=== PATIENT | male | born 1940 | race Caucasian/White ===

== ENCOUNTER 2023-07-11 01:52 | Inpatient (IN) | payer MEDICARE, SELFPAY ==
[2023-07-11] VITALS (19 sets, daily range): BP systolic 102–162; BP diastolic 59–87; PULSE 90–125; RESP 13–22; TEMP 36.7–39.1; O2SAT 92–97; BMI 26.6
--- NOTE | ~2023-07-11 | XR_ITS ---
EXAMINATION: XR ABDOMEN KUB CLINICAL INDICATION: Vomiting COMPARISON: None available. TECHNIQUE: AP view of the abdomen. FINDINGS: The bowel gas pattern is normal with no evidence of ileus or obstruction. Permanent calcifications projecting over the bilateral renal shadows may represent nonobstructive calculi.. The bones are unremarkable. XR/XR KUB IMPRESSION: * No evidence of bowel obstruction. * Query bilateral nonobstructive renal calculi.
--- NOTE | ~2023-07-11 | XR_ITS ---
EXAMINATION: XR CHEST CLINICAL INFORMATION: Cough COMPARISON: None available. TECHNIQUE: Frontal view of the chest was obtained. FINDINGS: Low lung volumes. No focal consolidation. No pleural effusion. No pneumothorax. Cardiomediastinal silhouette and pulmonary vascularity are within normal limits. No acute osseous abnormalities. XR/XR chest 1V IMPRESSION: No acute findings.
--- NOTE | 2023-07-11 02:25 | PC.NURSE ---
This RN assumed care upon patient arrival. Patient noted to have fever, met SIRS criteria, sepsis protocol initiated at 0215. Dr. Flores aware, plan of care ongoing
[2023-07-11 02:30] LABS: Basophils Absolute Auto 0.1 X10*3/uL (0.0-0.2); Basophils Percent Auto 0.3 % (0-2); Eosinophils Percent Auto 0.1 % (0-4); Hematocrit 42.9 % (42.0-52.0); Hemoglobin 14.8 g/dl (14.0-18.0); Imm Gran Abs Auto 0.09 X10*3/uL (0.00-0.03); Imm Gran Pct Auto 0.5 % (0.0-0.4); Lymphocytes Absolute Auto 0.6 X10*3/uL (1.2-4.9); Lymphocytes Percent Auto 3.2 % (20-40); MANUAL DIFF FLAG SCAN; Mean Corpuscular HGB Conc 34.5 g/dl (31.0-36.0); Mean Corpuscular Hemoglobin 29.5 pg (27.0-33.0); Mean Corpuscular Volume 85.6 fL (80.0-98.0); Mean Platelet Volume 9.8 fL (9.4-12.4); Monocytes Absolute Auto 0.3 X10*3/uL (0.1-1.2); Monocytes Percent Auto 1.5 % (2-11); Neutrophils Percent Auto 94.4 % (45-73); Platelet Count 178 X10*3/uL (160-400); Red Blood Count 5.01 X10*6/uL (4.60-5.80); Red Cell Distribution Width 13.7 % (11.0-16.0); SCAN SMEAR FLAG 1
[2023-07-11] MEDS: Acetaminophen Supp 650 MG SUPP.RECT PR (02:32)
[2023-07-11 02:43] LABS: Alanine Aminotransferase 11 U/L (0-40); Albumin Level 4.2 g/dL (3.5-5.0); Alkaline Phosphatase 111 U/L (39-117); Anion Gap 21 (12-20); Aspartate Amino Transferase 13 U/L (5-37); Bilirubin Total 0.9 mg/dL (0.0-1.0); Blood Urea Nitrogen 30 mg/dL (9-16); Calcium 10.1 mg/dL (8.4-10.2); Carbon Dioxide 14 mmol/L (22-29); Chloride 113 mmol/L (96-108); Creatinine Clr Calc Pharmacy 40.6; Estimated Glomerular Filt Rate 42; Glucose Random 165 mg/dL (60-115); Partial Thromboplastin Time 26.5 SEC (26.0-36.4); Potassium 3.3 mmol/L (3.3-5.1); Sodium 145 mmol/L (135-145); Total Protein 7.8 g/dL (6.5-8.0)
[2023-07-11 02:44] LABS: Lactic Acid 5.2 mmol/L (0.5-2.0)
--- NOTE | 2023-07-11 02:45 | ECG_ITS ---
Test Reason : MATFESR Blood Pressure : / mmHG Vent. Rate : 109 BPM Atrial Rate : 109 BPM P-R Int : 192 ms QRS Dur : 090 ms QT Int : 338 ms P-R-T Axes : 025 -66 057 degrees QTc Int : 455 ms Sinus tachycardia Nonspecific ST and T wave abnormality Anterior leads Left anterior fascicular block Inferior infarct , age undetermined Abnormal ECG No previous ECGs available Referred By: Jaymie Flores Electronically Signed By:LINCOLN LARIOS MD
--- NOTE | 2023-07-11 02:45 | PC.NURSE ---
Patient medicated with rectal Tylenol per NOV.
[2023-07-11 02:46] LABS: SLIDE REVIEW VERIFIED
[2023-07-11 02:48] LABS: Troponin-I High Sensitivity 2.7 ng/L (<3.5-35.0)
[2023-07-11 02:54] LABS: COVID-19 Test Negative (Negative); IDNOW Serial# BCCEAD1C
[2023-07-11] MEDS: 0.9 % Sodium Chloride 2,670 ML 2670 ML IV (03:08)
--- NOTE | 2023-07-11 03:11 | ED_ITS ---
HPI - Nausea/Vomiting/Diarrhea General Chief complaint: Nausea/Vomiting/Diarrhea Stated complaint: vomiting Time Seen by Provider: 07/11/23 02:23 Source: EMS and other Mode of arrival: EMS History of Present Illness HPI Narrative: 82-year-old male is brought in from [facility] via EMS for vomiting x4 of dark brown emesis as per the facility, patient is very confused at baseline per EMS and has a history of dementia. Related Data Allergies Allergy/AdvReac Type Severity Reaction Status Date / Time Unable to Assess Allergy Verified 07/11/23 02:23 Review of Systems 2 Review of Systems: Yes Unobtainable due to mental condition PMFSH Past Medical History Source: nursing notes reviewed Social History Social History Advance Directives: No Advance Directives Information Provided: No Physical Exam 2 Vital Signs: Vital Signs: Last Vital Signs Temp 100.9 F H 07/11/23 03:52 Pulse 94 07/11/23 04:24 Resp 21 H 07/11/23 04:24 BP 150/76 H 07/11/23 04:24 Pulse Ox 96 07/11/23 04:24 O2 Del Method Room Air 07/11/23 04:24 BMI result Body Mass Index 26.6 VITAL SIGNS: Reviewed. GENERAL: Well developed, well nourished, in moderately agitated. HEAD: Normocephalic/atraumatic, EYES: PERRLA, EOMI EARS: Ext canals without abnormality, TMs non-bulging and non-erythematous NOSE: Nares patent bilateral OROPHARYNX: no oral lesions noted, posterior pharynx clear, dry mucosa NECK: Supple, no adenopathy LUNGS: Normal breath sounds. No adventitious sounds or accessory muscle use. SpO2<> CARDIOVASCULAR: Regular rate and rhythm without noted murmurs, no JVD or lower extremity edema. ABDOMEN: Soft, +tender, non-distended with hypoactive bowel sounds. MUSCULOSKELETAL: No tenderness, deformities, or effusions noted on gross inspection. EXTREMITIES: No cyanosis, clubbing or edema. SKIN: Inspection of the skin reveals no rashes NEUROLOGIC: Alert and oriented x 1. Strength and sensation to light touch were grossly intact x 4. Medications Administered Discontinued Medications Generic Name Dose Route Start Last Admin Trade Name Freq PRN Reason Stop Dose Admin Acetaminophen 650 mg 07/11/23 02:24 07/11/23 02:32 Acetaminophen Supp 650 Mg Supp.Rect SC 07/11/23 02:25 650 mg ONCE ONE Administration Sodium Chloride 2,670 mls @ 2,670 mls/hr 07/11/23 02:44 07/11/23 03:08 Ns 30 ml/kg infuse over 1 hr (2670 ml) 07/11/23 03:43 2,670 mls/hr IV Administration .Q1H STA Piperacillin Sod/Tazobactam 50 mls @ 100 mls/hr 07/11/23 03:03 07/11/23 03:13 Sod 3.375 gm/ Sodium Chloride IV 07/11/23 03:32 100 mls/hr ONCE ONE Administration Medical Decision Making Medical Decision Making [facility] Narrative: 0224: 82-year-old male with history and clinical presentation, DDX: Sepsis, GI bleed, SBO, UTI, diverticulitis, pneumonia - labs, lactic acid, blood cultures, urinalysis, chest x-ray, EKG I was called and informed that patient's lactic acid was greater than 4 and ordered sepsis fluids for this patient at 30ml/kg. 0303: Confirm patient has no allergies to antibiotics and ordered Zosyn. 0324: I reviewed all investigations and hematologic indices are significant for leukocytosis and left shift without anemia or thrombocytopenia. Chemistry indices significant for RICK and metabolic acidosis that is being attributed to patient's lactic acidosis, otherwise no liver enzyme abnormalities. Urinalysis significant for UTI. KUB negative for evidence of obstructive pattern and chest x-ray negative for infiltrate. I re-evaluated the patient. 0440: I discussed case with inpatient hospitalist who accepts admission. Differential Diagnosis Differential Diagnoses: The differential diagnosis associated with the presentation includes Please see the discussion above Admission/Observation Consideration of admission/observation: Escalation of care including admission/observation considered Please see the discussion above Consult Healthcare Provider Management of the patient was discussed with: Hospitalist Please see the discussion above Lab Data MDM Lab Attestation statement: I reviewed the patient's lab results. Please see the discussion above 07/11/23 02:21 07/11/23 02:21 Labs: Lab Results 07/11/23 07/11/23 07/11/23 Range/Units 02:21 02:27 04:10 WBC 19.0 H (4.8-10.8) X10*3/uL RBC 5.01 (4.60-5.80) X10*6/uL Hgb 14.8 (14.0-18.0) g/dl Hct 42.9 (42.0-52.0) % MCV 85.6 (80.0-98.0) fL MCH 29.5 (27.0-33.0) pg MCHC 34.5 (31.0-36.0) g/dl RDW 13.7 (11.0-16.0) % Plt Count 178 (160-400) X10*3/uL MPV 9.8 (9.4-12.4) fL Immature Gran % (Auto) 0.5 H (0.0-0.4) % Neut % (Auto) 94.4 H (45-73) % Lymph % (Auto) 3.2 L (20-40) % [place] % (Auto) 1.5 L (2-11) % Eos % (Auto) 0.1 (0-4) % Baso % (Auto) 0.3 (0-2) % Lymph # (Auto) 0.6 L (1.2-4.9) X10*3/uL [place] # (Auto) 0.3 (0.1-1.2) X10*3/uL Eos # (Auto) 0.0 (0.0-0.4) X10*3/uL Baso # (Auto) 0.1 (0.0-0.2) X10*3/uL Abs Immat Gran (auto) 0.09 H (0.00-0.03) X10*3/uL Absolute Neuts (auto) 18.0 H (2.0-8.3) x10*3/uL Absolute Nucleated RBC 0.000 (0.0-0.012) X10*3/uL Nucleated RBC % (auto) 0.0 (0.0-0.2) /100WBC Smear Tech's Comments VERIFIED APTT 26.5 (26.0-36.4) SEC Sodium 145 (135-145) mmol/L Potassium 3.3 (3.3-5.1) mmol/L Chloride 113 H (96-108) mmol/L Carbon Dioxide 14 L (22-29) mmol/L Anion Gap 21 H (12-20) BUN 30 H (9-16) mg/dL Creatinine 1.59 H (0.5-1.4) mg/dL Estim Creat Clear Calc 40.6 Estimated GFR 42 Random Glucose 165 H (60-115) mg/dL Lactic Acid 5.2 H* (0.5-2.0) mmol/L Calcium 10.1 (8.4-10.2) mg/dL Total Bilirubin 0.9 (0.0-1.0) mg/dL AST 13 (5-37) U/L ALT 11 (0-40) U/L Alkaline Phosphatase 111 (39-117) U/L Troponin I High Sens 2.7 (<3.5-35.0) ng/L Total Protein 7.8 (6.5-8.0) g/dL Albumin 4.2 (3.5-5.0) g/dL Urine Color Straw Urine Appearance Turbid Urine pH 8.5 (5.0-9.0) Ur Specific [place] 1.015 (1.005-1.025) Urine Protein 100 (2+) H (Neg-Trace) mg/dL Urine Glucose (UA) Negative (Negative) mg/dL Urine Ketones Negative (Negative) mg/dL Urine Blood Large (3+) H (Negative) Urine Nitrite Positive H (Negative) Ur Leukocyte Esterase Large (3+) H (Negative) COVID-19 (EVI) Negative (Negative) COVID-19 Clin Com See Note Independent Interpretation I performed an independent interpretation of an: EKG Interpretation: Sinus tachycardia, HR-109, SC/QRS/QTC is within normal limits. Radiology Impression Discussion of test interpretation with radiology: I have reviewed the radiologist's reading. Radiologist Impression: Please see the discussion above Chronic Conditions Patient?s care impacted by: Hypertension Critical Care Time Critical Care Time Critical Care Time: Yes Total Critical Care Time: 60 Attestation: I personally attest to this time spent taking care of the patient. Discharge Plan Discharge Clinical Impression: Severe sepsis, Acute UTI, RICK (acute kidney injury), Metabolic acidosis Patient Disposition: Admitted As Inpatient
[2023-07-11] MEDS: Piperacillin Sodium/Tazobactam 3.375 GM in 0.9 % Sodium Chloride 50 ML IV (03:13)
--- NOTE | 2023-07-11 04:08 | PC.NURSE ---
Addendum entered by Terri Velez RN 07/11/23 04:09: Late entry- this was done at 0257 Original Note: Adolfo LONG from [facility] confirmed patient has NO KNOWN ALLERGIES
[2023-07-11 04:26] LABS: Reflex Lactate? Lactic Acid Added
[2023-07-11 04:30] LABS: Appearance Urine Turbid; Glucose Urine UA Negative (Negative); Leukocyte Esterase Urine Large (3+) (Negative); Nitrite Urine Positive (Negative); PH 8.5 (5.0-9.0); Specific Gravity - Urine 1.015 (1.005-1.025); UMIC TRIGGER UACC YES; Urine Blood Large (3+) (Negative); Urine Ketones Negative (Negative); Urine Protein 100 (2+) mg/dL (Neg-Trace)
[2023-07-11 04:31] LABS: Color Urine Straw
--- NOTE | 2023-07-11 04:43 | P.HPHOSP_ITS ---
History of Present Illness Date of Service: 07/11/23 Chief Complaint: Altered mentation This is a 82-year-old male with pertinent history of unspecified dementia, mood disorder, mixed hyperlipidemia who was sent to the emergency department for evaluation of altered mentation. Patient is a resident of [facility] and he was sent as he is confused. Also has been having multiple episodes of nonbloody emesis. Patient is a poor historian and unable to obtain history from the patient. History obtained from ER provider and chart review. Unable to obtain review of systems. In the emergency department, patient was found to be septic and urine concerning for UTI. Review of Systems 2 Review of Systems: Yes Unobtainable due to mental condition and Unobtainable due to mental status PMFSH Medical History (Updated 07/11/23 @ 05:31 by Crow Murrieta MD) Dementia Mood disorder Mixed hyperlipidemia Pertinent family history: Unable to obtain Social History Advance Directives: No Advance Directives Information Provided: No Meds Allergies Allergy/AdvReac Type Severity Reaction Status Date / Time Unable to Assess Allergy Verified 07/11/23 02:23 Physical Exam 2 Vital Signs and Narrative: Vital Signs: Last Vital Signs Temp 100.9 F H 07/11/23 03:52 Pulse 94 07/11/23 04:39 Resp 19 07/11/23 04:39 BP 149/83 H 07/11/23 04:39 Pulse Ox 95 07/11/23 04:39 O2 Del Method Room Air 07/11/23 04:39 BMI result Body Mass Index 26.6 Elderly male lying in bed in no distress Neck supple, no JVD Regular rate and rhythm, S1-S2 heard Regular breath sounds bilaterally, no wheezing or crackles appreciated Abdomen soft nontender, no guarding, no rigidity Patient is awake, alert but not answering questions, occasional mumbling, not conversational, unable to assess orientation Psych: Lethargic No pedal edema Results Labs 07/11/23 02:21 07/11/23 02:21 Labs: Laboratory Results - last 24 hr 07/11/23 07/11/23 07/11/23 02:21 02:27 04:10 MCV 85.6 MCH 29.5 MCHC 34.5 RDW 13.7 Plt Count 178 MPV 9.8 Immature Gran % (Auto) 0.5 H Neut % (Auto) 94.4 H Lymph % (Auto) 3.2 L [place] % (Auto) 1.5 L Eos % (Auto) 0.1 Baso % (Auto) 0.3 Lymph # (Auto) 0.6 L [place] # (Auto) 0.3 Eos # (Auto) 0.0 Baso # (Auto) 0.1 Abs Immat Gran (auto) 0.09 H Absolute Neuts (auto) 18.0 H Absolute Nucleated RBC 0.000 Nucleated RBC % (auto) 0.0 Smear Tech's Comments VERIFIED APTT 26.5 Anion Gap 21 H Estim Creat Clear Calc 40.6 Estimated GFR 42 Random Glucose 165 H Lactic Acid 5.2 H* Calcium 10.1 Total Bilirubin 0.9 AST 13 ALT 11 Alkaline Phosphatase 111 Total Protein 7.8 Albumin 4.2 Urine Color Straw Urine Appearance Turbid Urine pH 8.5 Ur Specific [place] 1.015 Urine Protein 100 (2+) H Urine Glucose (UA) Negative Urine Ketones Negative Urine Blood Large (3+) H Urine Nitrite Positive H Ur Leukocyte Esterase Large (3+) H COVID-19 (EVI) Negative COVID-19 Clin Com See Note Imaging Radiologist's Impressions: Impressions Chest X-Ray 07/11/23 02:47 IMPRESSION: No acute findings. KUB X-Ray 07/11/23 02:47 IMPRESSION: * No evidence of bowel obstruction. * Query bilateral nonobstructive renal calculi. Assessment and Plan (1) Severe sepsis: Status: Acute (2) Acute UTI: Status: Acute Plan This is a 82-year-old male with pertinent history of unspecified dementia, mood disorder, mixed hyperlipidemia who was sent to the emergency department for evaluation of altered mentation. #. Sepsis due to UTI. Resuscitated with IV crystalloids. Initiating empiric IV antibiotics. Lactic acid and blood culture obtained #. Acute encephalopathy in the setting of above. Will keep NPO until mentation improves #. Acute lactic acidosis due to sepsis. Trending down with crystalloid resuscitation #. Elevated creatinine. Unknown baseline. RICK versus CKD. Monitor with crystalloid resuscitation #. Dementia, unspecified without behavioral disturbances. Maintain sleep-wake cycle. #. Mood disorder. Continue home mood stabilizers once no longer NPO Med rec pending DVT prophylaxis: Lovenox DNR/DNI. MOLST form present on admission Admit as inpatient and will require two night minimum hospital stay for IV antibiotics Time Spent With Patient Time: Total time managing care of this patient today ____ minutes. Quality Stroke Does the patient have a stroke diagnosis?: No VTE Prior VTE?: No VTE Risk Level:: Medical - moderate - high VTE Device Contraindication: Treatment Not Indicated VTE Drug Contraindication: N/A - Med Ordered
[2023-07-11 04:45] LABS: Bacteria Urine 4+ (None Seen); RBC Urine >20 /HPF (0-2); Squamous Epithelial Cell Urine 0-2 /HPF (0-2); UACC Culture Trigger YES; WBC Urine >50 /HPF (0-5)
[2023-07-11 06:06] LABS: Alanine Aminotransferase 9 U/L (0-40); Albumin Level 3.3 g/dL (3.5-5.0); Alkaline Phosphatase 81 U/L (39-117); Anion Gap 15 (12-20); Aspartate Amino Transferase 13 U/L (5-37); Bilirubin Total 0.8 mg/dL (0.0-1.0); Blood Urea Nitrogen 28 mg/dL (9-16); Calcium 8.4 mg/dL (8.4-10.2); Carbon Dioxide 12 mmol/L (22-29); Chloride 121 mmol/L (96-108); Creatinine Clr Calc Pharmacy 43.1; Estimated Glomerular Filt Rate 45; Glucose Random 136 mg/dL (60-115); Potassium 3.3 mmol/L (3.3-5.1); Sodium 145 mmol/L (135-145); Total Protein 6.3 g/dL (6.5-8.0)
[2023-07-11 06:44] LABS: Reflex Lactate? 2 Y
[2023-07-11] MEDS: cefTRIAXone sodium 1 GM in 0.9 % Sodium Chloride 50 ML IV (07:38)
[2023-07-11] MEDS: Enoxaparin Sodium 40 MG/0.4 ML SYRINGE SUBCUT (07:41)
[2023-07-11] MEDS: 0.9 % Sodium Chloride Flush 3 ML SYRINGE IVFLUSH ×2 (07:48→20:22)
[2023-07-11 08:00] LABS: ~Lactic Acid-LAB USE ONLY 4.7 mmol/L (0.5-2.0)
--- NOTE | 2023-07-11 08:23 | PC.NURSE ---
lactic 4.7, reported to provider
--- NOTE | 2023-07-11 09:01 | PHA.MEDREC ---
Pharmacy Consult ? Medication Reconciliation Pharmacy has completed the medication reconciliation. MED REC COMPLETE USING LIST FROM DAMIEN COHEN DATED 07/11/23
--- NOTE | 2023-07-11 10:38 | MHC.CM.PN ---
Pt w/dementia and not able to particpate in CM assessment. Call placed to pt's son Hilario at [phone]: he states pt resides at [facility] and has his HCP activated. IMM explained to Hilario: copy left w/pt. Call placed to MERCEDES Crowell at [facility]. She states pt is totally dependent on others for ADL's, requires a ground soft diet and physical assist and cannot make his needs known. He is a LTC resident and will return via BLS. She will fax his MOLST and HCP to ED. CM to follow for d/c finalization
--- NOTE | 2023-07-11 11:11 | P.PNIM_ITS ---
Subjective Subjective Date of Service: 07/11/23 Review of Systems Review of Systems: Yes Unobtainable due to mental condition Physical Exam 2 Vital Signs: Vital Signs: Last Vital Signs Temp 100.1 F 07/11/23 06:00 Pulse 104 H 07/11/23 08:23 Resp 18 07/11/23 08:23 BP 150/78 H 07/11/23 08:23 Pulse Ox 97 07/11/23 08:23 O2 Del Method Room Air 07/11/23 08:23 BMI result Body Mass Index 26.6 lethargic, frail, ill appearing, confused Objective Data Active Medications Acetaminophen (Acetaminophen 325 Mg Tablet) 650 mg PO Q6H PRN PRN Reason: Pain, Mild (Pain Scale 1-3) Acetaminophen (Acetaminophen Supp 650 Mg Supp.Rect) 650 mg [place] Q6H PRN PRN Reason: Pain, Mild (Pain Scale 1-3) Aspirin (Aspirin 81 Mg Tab.Chew) 81 mg PO DAILY [facility] Enoxaparin Sodium (Enoxaparin Sodium 40 Mg/0.4 Ml Syringe) 40 mg SUBCUT Q24H [facility] Last Admin: 07/11/23 07:41 Dose: 40 mg Documented By: MIRIAM Ceftriaxone Sodium 1 gm/ (Sodium Chloride) 50 mls @ 100 mls/hr IV Q24H [facility] Last Infusion: 07/11/23 08:46 Dose: Infused Documented By: MIRIAM Melatonin (Melatonin 3 Mg Tablet) 6 mg PO BEDTIME PRN PRN Reason: Insomnia Mirtazapine (Mirtazapine 15 Mg Tablet) 15 mg PO BEDTIME [facility] Ondansetron HCl (Ondansetron Hcl 4 Mg/2 Ml Vial) 4 mg IVPUSH Q8H PRN PRN Reason: Nausea and Vomiting Polyethylene Glycol (Polyethylene Glycol 3350 17 Gm Powd.Pack) 17 gm PO Q OTHER DAY [facility] Sertraline HCl (Sertraline Hcl 25 Mg Tablet) 75 mg PO DAILY [facility] Simethicone (Simethicone 80 Mg Tab.Chew) 80 mg PO Q8H PRN PRN Reason: Gas Sodium Chloride (0.9 % Sodium Chloride Flush 3 Ml Syringe) 3 ml IVFLUSH QSHIFT [facility] Last Admin: 07/11/23 07:48 Dose: 3 ml Documented By: MIRIAM Vitamin D (Cholecalciferol (Vitamin D3) 25 Mcg Tablet) 25 mcg PO DAILY [facility] Labs 07/11/23 02:21 07/11/23 04:51 Labs: Laboratory Results - last 24 hr 07/11/23 07/11/23 07/11/23 02:21 02:27 04:10 MCV 85.6 MCH 29.5 MCHC 34.5 RDW 13.7 Plt Count 178 MPV 9.8 Immature Gran % (Auto) 0.5 H Neut % (Auto) 94.4 H Lymph % (Auto) 3.2 L [place] % (Auto) 1.5 L Eos % (Auto) 0.1 Baso % (Auto) 0.3 Lymph # (Auto) 0.6 L [place] # (Auto) 0.3 Eos # (Auto) 0.0 Baso # (Auto) 0.1 Abs Immat Gran (auto) 0.09 H Absolute Neuts (auto) 18.0 H Absolute Nucleated RBC 0.000 Nucleated RBC % (auto) 0.0 Smear Tech's Comments VERIFIED APTT 26.5 Anion Gap 21 H Estim Creat Clear Calc 40.6 Estimated GFR 42 Random Glucose 165 H Lactic Acid 5.2 H* Lactic Acid F/U @ 2Hr Lactic Acid F/U @ 4Hr Calcium 10.1 Total Bilirubin 0.9 AST 13 ALT 11 Alkaline Phosphatase 111 Total Protein 7.8 Albumin 4.2 Urine Color Straw Urine Appearance Turbid Urine pH 8.5 Ur Specific [place] 1.015 Urine Protein 100 (2+) H Urine Glucose (UA) Negative Urine Ketones Negative Urine Blood Large (3+) H Urine Nitrite Positive H Ur Leukocyte Esterase Large (3+) H Urine RBC >20 H Urine WBC >50 H Ur Squamous Epith Cells 0-2 Urine Bacteria 4+ Hyaline Casts 3-5 COVID-19 (EVI) Negative COVID-19 Clin Com See Note 07/11/23 07/11/23 07/11/23 04:39 04:51 07:38 MCV MCH MCHC RDW Plt Count MPV Immature Gran % (Auto) Neut % (Auto) Lymph % (Auto) [place] % (Auto) Eos % (Auto) Baso % (Auto) Lymph # (Auto) [place] # (Auto) Eos # (Auto) Baso # (Auto) Abs Immat Gran (auto) Absolute Neuts (auto) Absolute Nucleated RBC Nucleated RBC % (auto) Smear Tech's Comments APTT Anion Gap 15 Estim Creat Clear Calc 43.1 Estimated GFR 45 Random Glucose 136 H Lactic Acid Lactic Acid F/U @ 2Hr 3.0 H* Lactic Acid F/U @ 4Hr 4.7 H* Calcium 8.4 D Total Bilirubin 0.8 AST 13 ALT 9 Alkaline Phosphatase 81 Total Protein 6.3 L Albumin 3.3 L Urine Color Urine Appearance Urine pH Ur Specific [place] Urine Protein Urine Glucose (UA) Urine Ketones Urine Blood Urine Nitrite Ur Leukocyte Esterase Urine RBC Urine WBC Ur Squamous Epith Cells Urine Bacteria Hyaline Casts COVID-19 (EVI) COVID-19 Clin Com Assessment and Plan (1) Dementia: Status: Acute Plan 82M PMH unspecified dementia, mood disorder, hyperlipidemia presented with altered mental status Severe sepsis and acute metabolic encephalopathy due to urinary tract infection Continue ceftriaxone, follow-up cultures Unspecified dementia At risk for further delirium, monitor closely DVT prophylaxis with Lovenox DNR/DNI Reason for continued hospitalization: Continue antibiotics while awaiting cultures and defervescence Time Spent With Patient Time: Total time managing care of this patient today ____ minutes. Quality Stroke Does the patient have a stroke diagnosis?: No VTE Prior VTE?: No VTE Risk Level:: Medical - moderate - high VTE Device Contraindication: Treatment Not Indicated VTE Drug Contraindication: N/A - Med Ordered
[2023-07-11] MEDS: polyethylene glycoL 3350 17 GM POWD.PACK PO (13:02)
--- NOTE | 2023-07-11 13:02 | PC.NURSE ---
Report given to accepting unit
[2023-07-12 03:52] VITALS: BP 126/65; PULSE 74; RESP 14; TEMP 36; O2SAT 96
--- NOTE | 2023-07-12 05:34 | PC.NURSE ---
pt is bedbound at the SNF not moving out of bed therefore low fall risk at this time. pt is total care w/chronic f/c. provided q2 reposition during the night. provided mouth care. pt is more alert at this morning. when I called his name, pt response and make some sounds. will CONT to monitor.
[2023-07-12] MEDS: cefTRIAXone sodium 1 GM in 0.9 % Sodium Chloride 50 ML IV (05:53)
[2023-07-12 06:28] LABS: Anion Gap 15 (12-20); Blood Urea Nitrogen 42 mg/dL (9-16); Calcium 8.9 mg/dL (8.4-10.2); Carbon Dioxide 17 mmol/L (22-29); Chloride 122 mmol/L (96-108); Creatinine Clr Calc Pharmacy 41.7; Estimated Glomerular Filt Rate 43; Glucose Fasting 112 mg/dL (60-99); Potassium 3.5 mmol/L (3.3-5.1); Sodium 150 mmol/L (135-145)
[2023-07-12 06:35] LABS: Hematocrit 34.3 % (42.0-52.0); Mean Corpuscular Hemoglobin 30.3 pg (27.0-33.0); Mean Corpuscular Volume 86.6 fL (80.0-98.0); Mean Platelet Volume 10.9 fL (9.4-12.4); Platelet Count 116 X10*3/uL (160-400); Red Blood Count 3.96 X10*6/uL (4.60-5.80); Red Cell Distribution Width 14.1 % (11.0-16.0)
[2023-07-12 06:55] VITALS: BP 131/78; PULSE 81; RESP 16; TEMP 36.7; O2SAT 94
[2023-07-12] MEDS: vancomycin/NS 2,000 MG/500 ML PLAST..BAG 250 MG IV (07:51)
--- NOTE | 2023-07-12 08:17 | PHA.PROG ---
Admission Date/Time: July 11, 2023 04:42 Indication: Bacteremia Weight in k kg Adjusted body weight in K.16 [place] body weight in K.6 Obesity Dosing Indication % IBW: not obese Serum Creatinine - Last 168 Hours 07/11/23 07/11/23 07/12/23 02:21 04:51 05:21 Creatinine 1.59 H 1.50 H 1.55 H Estimated CrCl and GFR - Last 168 Hours 07/11/23 07/11/23 07/12/23 02:21 04:51 05:21 Estim Creat Clear Calc 40.6 43.1 41.7 Estimated GFR 42 45 43 Vancomycin Loading Dose: 2000 mg Current Vancomycin Dosing Regimen: 1250 mg Q24H Vancomycin Monitoring using AUC goal of 400 - 600 range with trough as surrogate marker: 574 Date and Time for next Vancomycin Level to be drawn: 07/14 @0600 Pharmacist Comments on Vancomycin Plan: Vancomycin dosing will take advantage of [employer] as a clinical decision support tool that uses Bayesian modeling to calculate individual patient's pharmacokinetic parameters and forecast the patient's drug concentration time course with the target goal AUC 24 range of 400 - 600 mg/L/hr.
[2023-07-12] MEDS: Enoxaparin Sodium 40 MG/0.4 ML SYRINGE SUBCUT (09:30)
--- NOTE | 2023-07-12 09:52 | P.PNIM_ITS ---
Subjective Subjective Date of Service: 07/12/23 Interval History: a bit stronger today Physical Exam 2 Vital Signs: Vital Signs: Last Vital Signs Temp 98.1 F 07/12/23 06:55 Pulse 81 07/12/23 06:55 Resp 16 07/12/23 06:55 BP 131/78 07/12/23 06:55 Pulse Ox 94 07/12/23 06:55 O2 Del Method Room Air 07/12/23 06:55 BMI result Body Mass Index 26.6 less lethargic, frail, ill appearing, confused Objective Data Active Medications Acetaminophen (Acetaminophen 325 Mg Tablet) 650 mg PO Q6H PRN PRN Reason: Pain, Mild (Pain Scale 1-3) Acetaminophen (Acetaminophen Supp 650 Mg Supp.Rect) 650 mg [place] Q6H PRN PRN Reason: Pain, Mild (Pain Scale 1-3) Aspirin (Aspirin 81 Mg Tab.Chew) 81 mg PO DAILY [facility] Last Admin: 07/12/23 09:23 Dose: Not Given Documented By: MAGNOLIA Non-Admin Reason: NPO Enoxaparin Sodium (Enoxaparin Sodium 40 Mg/0.4 Ml Syringe) 40 mg SUBCUT Q24H [facility] Last Admin: 07/12/23 09:30 Dose: 40 mg Documented By: MAGNOLIA Ceftriaxone Sodium 1 gm/ (Sodium Chloride) 50 mls @ 100 mls/hr IV Q24H [facility] Last Infusion: 07/12/23 06:23 Dose: Infused Documented By: KAITLIN Vancomycin HCl 1,250 mg/ (Sodium Chloride) 250 mls @ 166.667 mls/hr IV Q24H JOSE E Melatonin (Melatonin 3 Mg Tablet) 6 mg PO BEDTIME PRN PRN Reason: Insomnia Mirtazapine (Mirtazapine 15 Mg Tablet) 15 mg PO BEDTIME [facility] Last Admin: 07/11/23 20:24 Dose: Not Given Documented By: KAITLIN Non-Admin Reason: NPO Ondansetron HCl (Ondansetron Hcl 4 Mg/2 Ml Vial) 4 mg IVPUSH Q8H PRN PRN Reason: Nausea and Vomiting Pharmacy Consult (Consult Rx Vancomycin Dosing) 1 each MISCELLANE DAILY PRN PRN Reason: Consult order Polyethylene Glycol (Polyethylene Glycol 3350 17 Gm Powd.Pack) 17 gm PO Q48H [facility] Last Admin: 07/11/23 13:02 Dose: 17 gm Documented By: MIRIAM Sertraline HCl (Sertraline Hcl 25 Mg Tablet) 75 mg PO DAILY [facility] Last Admin: 07/12/23 09:23 Dose: Not Given Documented By: MAGNOLIA Non-Admin Reason: NPO Simethicone (Simethicone 80 Mg Tab.Chew) 80 mg PO Q8H PRN PRN Reason: Gas Sodium Chloride (0.9 % Sodium Chloride Flush 3 Ml Syringe) 3 ml IVFLUSH QSHIFT [facility] Last Admin: 07/12/23 08:04 Dose: Not Given Documented By: AMGNOLIA Non-Admin Reason: IV Running Vitamin D (Cholecalciferol (Vitamin D3) 25 Mcg Tablet) 25 mcg PO DAILY [facility] Last Admin: 07/12/23 09:23 Dose: Not Given Documented By: MAGNOLIA Non-Hayde Reason: NPO Labs 07/12/23 05:21 07/12/23 05:21 Labs: Laboratory Results - last 24 hr 07/12/23 05:21 MCV 86.6 MCH 30.3 MCHC 35.0 RDW 14.1 Plt Count 116 L D MPV 10.9 Absolute Nucleated RBC 0.000 Nucleated RBC % (auto) 0.0 Anion Gap 15 Estim Creat Clear Calc 41.7 Estimated GFR 43 Fasting Glucose 112 H Calcium 8.9 Microbiology Microbiology Results: Microbiology 07/11/23 02:33 Blood Culture - Preliminary Blood - Venous Gram negative lesley Prelim: GPC Gram Stain only 07/11/23 02:21 Blood Culture - Preliminary Blood - Venous Gram negative lesley Prelim: GPC Gram Stain only Assessment and Plan (1) Dementia: Status: Acute Plan 82M PMH unspecified dementia, mood disorder, hyperlipidemia presented with altered mental status Severe sepsis and acute metabolic encephalopathy due to urinary tract infection due to chronic rizzo complicated by polymicrobial bacteremia Continue ceftriaxone, asdded vanc for gpc in blood Unspecified dementia At risk for further delirium, monitor closely DVT prophylaxis with Lovenox DNR/DNI Reason for continued hospitalization: Continue antibiotics while awaiting cultures and defervescence Time Spent With Patient Time: Total time managing care of this patient today ____ minutes. Quality Stroke Does the patient have a stroke diagnosis?: No VTE Prior VTE?: No VTE Risk Level:: Medical - moderate - high VTE Device Contraindication: Treatment Not Indicated VTE Drug Contraindication: N/A - Med Ordered
[2023-07-12 11:08] VITALS: BMI 26.6
--- NOTE | 2023-07-12 11:15 | MHC.CLN ---
NUTRITION DIET=REGULAR, GROUND. TAKES GROUND FOOD AT SNF. REQUIRES ASSIST WITH MEALS. BEDBOUND AT BASELINE. EARL=12. ADDING ENSURE MAX BID TO INCREASE NUTRITIONAL INTAKE. PROVIDES 300 KCALS, 60 G PROTEIN. AT RISK FOR SKIN BREAKDOWN. FOLLOW FOR INTAKE AND SKIN INTEGRITY.
--- NOTE | 2023-07-12 12:22 | MHC.CM.PN ---
DAMIEN COHEN UPDATED IN [facility]. POSSIBLE RETURN TO FACILITY ON Saturday07/15/23
[2023-07-12 15:41] VITALS: BP 127/68; PULSE 83; RESP 18; TEMP 36.4; O2SAT 94
[2023-07-12] MEDS: 0.9 % Sodium Chloride Flush 3 ML SYRINGE IVFLUSH ×2 (16:00→20:05)
[2023-07-12 19:27] VITALS: BP 120/64; PULSE 75; RESP 17; TEMP 36.1; O2SAT 94
[2023-07-12] MEDS: Mirtazapine 15 MG TABLET PO (20:04)
[2023-07-13 03:10] VITALS: BP 127/75; PULSE 73; RESP 18; TEMP 36.6; O2SAT 96
[2023-07-13] MEDS: cefTRIAXone sodium 1 GM in 0.9 % Sodium Chloride 50 ML IV (05:45)
[2023-07-13 07:11] LABS: Hematocrit 34.3 % (42.0-52.0); Hemoglobin 11.8 g/dl (14.0-18.0); Mean Corpuscular HGB Conc 34.4 g/dl (31.0-36.0); Mean Corpuscular Hemoglobin 29.9 pg (27.0-33.0); Mean Corpuscular Volume 86.8 fL (80.0-98.0); Mean Platelet Volume 10.2 fL (9.4-12.4); Red Blood Count 3.95 X10*6/uL (4.60-5.80); Red Cell Distribution Width 14.6 % (11.0-16.0); White Blood Count 14.7 X10*3/uL (4.8-10.8)
[2023-07-13 07:13] LABS: Platelet Count 98 X10*3/uL (160-400)
[2023-07-13 07:20] VITALS: BP 145/71; PULSE 72; RESP 20; TEMP 37; O2SAT 94
[2023-07-13 07:37] LABS: Anion Gap 14 (12-20); Blood Urea Nitrogen 36 mg/dL (9-16); Calcium 9.4 mg/dL (8.4-10.2); Carbon Dioxide 17 mmol/L (22-29); Chloride 125 mmol/L (96-108); Estimated Glomerular Filt Rate > 60; Glucose Fasting 116 mg/dL (60-99); Potassium 3.6 mmol/L (3.3-5.1); Sodium 152 mmol/L (135-145)
[2023-07-13] MEDS: 0.9 % Sodium Chloride Flush 3 ML SYRINGE IVFLUSH (08:03)
[2023-07-13] MEDS: vancomycin HCL 1,250 MG in 0.9 % Sodium Chloride 250 ML 166.67 MG IV (08:03)
[2023-07-13] MEDS: Dextrose 5 % 1,000 ML 100 ML IVCONT ×2 (08:03→20:58)
[2023-07-13] MEDS: Cholecalciferol (Vitamin D3) 25 MCG TABLET PO (10:14)
[2023-07-13] MEDS: Sertraline HCL 25 MG TABLET 75 MG PO (10:14)
--- NOTE | 2023-07-13 12:29 | P.PNIM_ITS ---
Subjective Subjective Date of Service: 07/13/23 Interval History: a bit stronger today Physical Exam 2 Vital Signs: Vital Signs: Last Vital Signs Temp 98.6 F 07/13/23 07:20 Pulse 72 07/13/23 07:20 Resp 20 07/13/23 07:20 BP 145/71 H 07/13/23 07:20 Pulse Ox 94 07/13/23 07:20 O2 Del Method Room Air 07/13/23 07:20 BMI result Body Mass Index 26.6 less lethargic, frail, ill appearing, confused Objective Data Active Medications Acetaminophen (Acetaminophen 325 Mg Tablet) 650 mg PO Q6H PRN PRN Reason: Pain, Mild (Pain Scale 1-3) Acetaminophen (Acetaminophen Supp 650 Mg Supp.Rect) 650 mg [place] Q6H PRN PRN Reason: Pain, Mild (Pain Scale 1-3) Ceftriaxone Sodium 1 gm/ (Sodium Chloride) 50 mls @ 100 mls/hr IV Q24H [facility] Last Infusion: 07/13/23 06:30 Dose: Infused Documented By: KATIA Vancomycin HCl 1,250 mg/ (Sodium Chloride) 250 mls @ 166.667 mls/hr IV Q24H [facility] Last Infusion: 07/13/23 10:25 Dose: Infused Documented By: CHALO Dextrose (D5w) 1,000 mls @ 100 mls/hr IVCONT .Q10H [facility] Last Admin: 07/13/23 08:03 Dose: 100 mls/hr Documented By: CHALO Melatonin (Melatonin 3 Mg Tablet) 6 mg PO BEDTIME PRN PRN Reason: Insomnia Mirtazapine (Mirtazapine 15 Mg Tablet) 15 mg PO BEDTIME [facility] Last Admin: 07/12/23 20:04 Dose: 15 mg Documented By: KATIA Ondansetron HCl (Ondansetron Hcl 4 Mg/2 Ml Vial) 4 mg IVPUSH Q8H PRN PRN Reason: Nausea and Vomiting Pharmacy Consult (Consult Rx Vancomycin Dosing) 1 each MISCELLANE DAILY PRN PRN Reason: Consult order Polyethylene Glycol (Polyethylene Glycol 3350 17 Gm Powd.Pack) 17 gm PO Q48H [facility] Last Admin: 07/11/23 13:02 Dose: 17 gm Documented By: MIRIAM Sertraline HCl (Sertraline Hcl 25 Mg Tablet) 75 mg PO DAILY [facility] Last Admin: 07/13/23 10:14 Dose: 75 mg Documented By: CHALO Simethicone (Simethicone 80 Mg Tab.Chew) 80 mg PO Q8H PRN PRN Reason: Gas Sodium Chloride (0.9 % Sodium Chloride Flush 3 Ml Syringe) 3 ml IVFLUSH QSHIFT [facility] Last Admin: 07/13/23 08:03 Dose: 3 ml Documented By: CHALO Vitamin D (Cholecalciferol (Vitamin D3) 25 Mcg Tablet) 25 mcg PO DAILY [facility] Last Admin: 07/13/23 10:14 Dose: 25 mcg Documented By: CHALO Labs 07/13/23 06:36 07/13/23 06:36 Labs: Laboratory Results - last 24 hr 07/13/23 06:36 MCV 86.8 MCH 29.9 MCHC 34.4 RDW 14.6 Plt Count 98 L MPV 10.2 Absolute Nucleated RBC 0.000 Nucleated RBC % (auto) 0.0 Anion Gap 14 Estim Creat Clear Calc 64.0 Estimated GFR > 60 Fasting Glucose 116 H Calcium 9.4 Microbiology Microbiology Results: Microbiology 07/11/23 07:46 Urine Culture - Preliminary Urine Catheterized - Rizzo Catheter Gram negative lesley Proteus species 07/11/23 02:33 Blood Culture - Preliminary Blood - Venous Proteus mirabilis Enterococcus/Streptococcus sp Gram negative lesley 07/11/23 02:21 Blood Culture - Preliminary Blood - Venous Proteus mirabilis Enterococcus/Streptococcus sp Assessment and Plan (1) Dementia: Status: Acute Plan 82M PMH unspecified dementia, mood disorder, hyperlipidemia presented with altered mental status Severe sepsis and acute metabolic encephalopathy due to urinary tract infection due to chronic rizzo complicated by polymicrobial bacteremia (proteus, enterococcus) Continue ceftriaxone, vanc follow up cultures hypernatremia d5w, monitor Unspecified dementia At risk for further delirium, monitor closely DVT prophylaxis with Lovenox DNR/DNI Reason for continued hospitalization: Continue antibiotics while awaiting cultures and defervescence Time Spent With Patient Time: Total time managing care of this patient today ____ minutes. Quality Stroke Does the patient have a stroke diagnosis?: No VTE Prior VTE?: No VTE Risk Level:: Medical - moderate - high VTE Device Contraindication: Treatment Not Indicated VTE Drug Contraindication: N/A - Med Ordered
[2023-07-13 15:15] VITALS: BP 141/68; PULSE 94; RESP 17; TEMP 36.3; O2SAT 93
[2023-07-13 20:00] VITALS: BP 124/75; PULSE 79; RESP 20; TEMP 36.8; O2SAT 94
[2023-07-13] MEDS: Mirtazapine 15 MG TABLET PO (20:59)
[2023-07-14 03:28] VITALS: BP 139/76; PULSE 67; RESP 16; TEMP 36.6; O2SAT 96
[2023-07-14] MEDS: cefTRIAXone sodium 1 GM in 0.9 % Sodium Chloride 50 ML IV (05:33)
[2023-07-14] MEDS: Dextrose 5 % 1,000 ML 100 ML IVCONT ×2 (05:36→18:31)
[2023-07-14 07:03] LABS: Hemoglobin 11.4 g/dl (14.0-18.0); Mean Corpuscular HGB Conc 33.5 g/dl (31.0-36.0); Mean Corpuscular Volume 89.5 fL (80.0-98.0); Mean Platelet Volume 10.7 fL (9.4-12.4); Platelet Count 91 X10*3/uL (160-400); Red Cell Distribution Width 14.2 % (11.0-16.0); White Blood Count 9.8 X10*3/uL (4.8-10.8)
[2023-07-14 07:12] LABS: Vancomycin Random 10.8 mcg/mL (15-20)
[2023-07-14 07:24] VITALS: BP 147/71; PULSE 61; RESP 16; TEMP 36.4; O2SAT 97
--- NOTE | 2023-07-14 08:10 | HE.PHANOTE ---
VANCO DOSE ADJUSTMENT BASED ON SCR AND TROUGH OF 10.8. DOSE INCREASED TO 1500 MG Q 24H. NEXT TROUGH ON 07/16 @ 0700
[2023-07-14] MEDS: 0.9 % Sodium Chloride Flush 3 ML SYRINGE IVFLUSH ×3 (09:04→19:42)
[2023-07-14] MEDS: Sertraline HCL 25 MG TABLET 75 MG PO (09:08)
[2023-07-14] MEDS: vancomycin HCL 1,500 MG in 0.9 % Sodium Chloride 500 ML 333.33 MG IV (09:08)
[2023-07-14] MEDS: Cholecalciferol (Vitamin D3) 25 MCG TABLET PO (09:09)
[2023-07-14 10:29] LABS: Anion Gap 13 (12-20); Blood Urea Nitrogen 29 mg/dL (9-16); Calcium 8.6 mg/dL (8.4-10.2); Carbon Dioxide 20 mmol/L (22-29); Chloride 116 mmol/L (96-108); Creatinine Clr Calc Pharmacy 75.1; Estimated Glomerular Filt Rate > 60; Glucose Fasting 113 mg/dL (60-99); Potassium 3.3 mmol/L (3.3-5.1); Sodium 146 mmol/L (135-145)
--- NOTE | 2023-07-14 11:00 | P.PNIM_ITS ---
Subjective Subjective Date of Service: 07/14/23 Interval History: a bit stronger today Physical Exam 2 Vital Signs: Vital Signs: Last Vital Signs Temp 97.6 F 07/14/23 07:24 Pulse 61 07/14/23 07:24 Resp 16 07/14/23 07:24 BP 147/71 H 07/14/23 07:24 Pulse Ox 97 07/14/23 07:24 O2 Del Method Room Air 07/14/23 07:24 BMI result Body Mass Index 26.6 less lethargic, frail, ill appearing, confused Objective Data Active Medications Acetaminophen (Acetaminophen 325 Mg Tablet) 650 mg PO Q6H PRN PRN Reason: Pain, Mild (Pain Scale 1-3) Acetaminophen (Acetaminophen Supp 650 Mg Supp.Rect) 650 mg [place] Q6H PRN PRN Reason: Pain, Mild (Pain Scale 1-3) Ceftriaxone Sodium 1 gm/ (Sodium Chloride) 50 mls @ 100 mls/hr IV Q24H [facility] Last Infusion: 07/14/23 06:21 Dose: Infused Documented By: KATIA Dextrose (D5w) 1,000 mls @ 100 mls/hr IVCONT .Q10H [facility] Last Admin: 07/14/23 05:36 Dose: 100 mls/hr Documented By: KATIA Vancomycin HCl 1,500 mg/ (Sodium Chloride) 500 mls @ 333.333 mls/hr IV Q24H [facility] Last Infusion: 07/14/23 10:58 Dose: Infused Documented By: CHALO Melatonin (Melatonin 3 Mg Tablet) 6 mg PO BEDTIME PRN PRN Reason: Insomnia Mirtazapine (Mirtazapine 15 Mg Tablet) 15 mg PO BEDTIME [facility] Last Admin: 07/13/23 20:59 Dose: 15 mg Documented By: KATIA Ondansetron HCl (Ondansetron Hcl 4 Mg/2 Ml Vial) 4 mg IVPUSH Q8H PRN PRN Reason: Nausea and Vomiting Pharmacy Consult (Consult Rx Vancomycin Dosing) 1 each MISCELLANE DAILY PRN PRN Reason: Consult order Polyethylene Glycol (Polyethylene Glycol 3350 17 Gm Powd.Pack) 17 gm PO Q48H [facility] Last Admin: 07/13/23 15:27 Dose: Not Given Documented By: CHALO Non-Admin Reason: Loose stool Sertraline HCl (Sertraline Hcl 25 Mg Tablet) 75 mg PO DAILY [facility] Last Admin: 07/14/23 09:08 Dose: 75 mg Documented By: CHALO Simethicone (Simethicone 80 Mg Tab.Chew) 80 mg PO Q8H PRN PRN Reason: Gas Sodium Chloride (0.9 % Sodium Chloride Flush 3 Ml Syringe) 3 ml IVFLUSH QSHIFT [facility] Last Admin: 07/14/23 09:04 Dose: 3 ml Documented By: CHALO Vitamin D (Cholecalciferol (Vitamin D3) 25 Mcg Tablet) 25 mcg PO DAILY [facility] Last Admin: 07/14/23 09:09 Dose: 25 mcg Documented By: CHALO Labs 07/14/23 06:35 07/14/23 09:45 Labs: Laboratory Results - last 24 hr 07/14/23 07/14/23 07/14/23 06:35 09:45 09:45 MCV 89.5 MCH 30.0 MCHC 33.5 RDW 14.2 Plt Count 91 L MPV 10.7 Absolute Nucleated RBC 0.000 Nucleated RBC % (auto) 0.0 Anion Gap 13 Estim Creat Clear Calc 75.1 Cancelled Estimated GFR > 60 Fasting Glucose Calcium Random Vancomycin 10.8 L 07/14/23 09:45 MCV MCH MCHC RDW Plt Count MPV Absolute Nucleated RBC Nucleated RBC % (auto) Anion Gap Estim Creat Clear Calc Estimated GFR Cancelled Fasting Glucose 113 H Calcium 8.6 D Random Vancomycin Microbiology Microbiology Results: Microbiology 07/11/23 02:33 Blood Culture - Final Blood - Venous Proteus mirabilis Enterococcus faecalis Pseudomonas aeruginosa 07/11/23 02:21 Blood Culture - Final Blood - Venous Proteus mirabilis Enterococcus faecalis 07/11/23 07:46 Urine Culture - Preliminary Urine Catheterized - Rizzo Catheter Gram negative lesley Proteus mirabilis Assessment and Plan (1) Dementia: Status: Acute Plan 82M PMH unspecified dementia, mood disorder, hyperlipidemia presented with altered mental status Severe sepsis and acute metabolic encephalopathy due to urinary tract infection due to chronic rizzo complicated by polymicrobial bacteremia (proteus, enterococcus) change to ampicillin hypernatremia d5w, monitor Unspecified dementia At risk for further delirium, monitor closely DVT prophylaxis with Lovenox DNR/DNI Reason for continued hospitalization: awaiting defervescence Time Spent With Patient Time: Total time managing care of this patient today ____ minutes. Quality Stroke Does the patient have a stroke diagnosis?: No VTE Prior VTE?: No VTE Risk Level:: Medical - moderate - high VTE Device Contraindication: Treatment Not Indicated VTE Drug Contraindication: N/A - Med Ordered
[2023-07-14] MEDS: Ampicillin Sodium 1 GM in 0.9 % Sodium Chloride 100 ML IV ×2 (13:40→19:38)
[2023-07-14 15:27] VITALS: BP 144/74; PULSE 67; RESP 18; TEMP 36.4; O2SAT 97
[2023-07-14 19:39] VITALS: BP 165/89; PULSE 72; RESP 16; TEMP 37.2; O2SAT 96
[2023-07-14] MEDS: Mirtazapine 15 MG TABLET PO (19:42)
[2023-07-15] MEDS: Ampicillin Sodium 1 GM in 0.9 % Sodium Chloride 100 ML IV ×4 (01:56→22:41)
[2023-07-15 03:11] VITALS: BP 134/90; PULSE 66; RESP 14; TEMP 36.5; O2SAT 96
[2023-07-15] MEDS: Dextrose 5 % 1,000 ML 100 ML IVCONT (05:41)
[2023-07-15 06:59] LABS: Hemoglobin 10.6 g/dl (14.0-18.0); PLT CLUMP 1; Red Cell Distribution Width 13.2 % (11.0-16.0)
[2023-07-15 07:01] LABS: Hematocrit 31.4 % (42.0-52.0); Mean Corpuscular HGB Conc 33.8 g/dl (31.0-36.0); Mean Corpuscular Hemoglobin 29.2 pg (27.0-33.0); Mean Corpuscular Volume 86.5 fL (80.0-98.0); Mean Platelet Volume 10.9 fL (9.4-12.4); Red Blood Count 3.63 X10*6/uL (4.60-5.80)
[2023-07-15 07:02] LABS: Platelet Count 91 X10*3/uL (160-400); White Blood Count 8.3 X10*3/uL (4.8-10.8)
[2023-07-15 07:16] LABS: Anion Gap 13 (12-20); Blood Urea Nitrogen 21 mg/dL (9-16); Calcium 8.3 mg/dL (8.4-10.2); Carbon Dioxide 17 mmol/L (22-29); Chloride 111 mmol/L (96-108); Creatinine Clr Calc Pharmacy 77.9; Estimated Glomerular Filt Rate > 60; Glucose Fasting 109 mg/dL (60-99); Sodium 138 mmol/L (135-145)
[2023-07-15 07:28] VITALS: BP 122/59; PULSE 61; RESP 16; TEMP 36.1; O2SAT 94
[2023-07-15] MEDS: Cholecalciferol (Vitamin D3) 25 MCG TABLET PO (08:34)
[2023-07-15] MEDS: Sertraline HCL 25 MG TABLET 75 MG PO (08:34)
[2023-07-15] MEDS: levoFLOXacin/D5W 500 MG/100 ML PIGGYBACK 100 MG IV (08:34)
[2023-07-15] MEDS: Potassium Chloride Packet 20 MEQ PACKET 40 MEQ PO (08:34)
--- NOTE | 2023-07-15 09:10 | P.PNIM_ITS ---
Subjective Subjective Date of Service: 07/15/23 Review of Systems Review of Systems: Yes Unobtainable due to mental condition Physical Exam 2 Vital Signs: Vital Signs: Last Vital Signs Temp 96.9 F 07/15/23 07:28 Pulse 61 07/15/23 07:28 Resp 16 07/15/23 07:28 BP 122/59 L 07/15/23 07:28 Pulse Ox 94 07/15/23 07:28 O2 Del Method Room Air 07/15/23 07:28 BMI result Body Mass Index 26.6 less lethargic, frail, ill appearing, confused Objective Data Active Medications Acetaminophen (Acetaminophen 325 Mg Tablet) 650 mg PO Q6H PRN PRN Reason: Pain, Mild (Pain Scale 1-3) Acetaminophen (Acetaminophen Supp 650 Mg Supp.Rect) 650 mg [place] Q6H PRN PRN Reason: Pain, Mild (Pain Scale 1-3) Ampicillin Sodium 1 gm/ Sodium (Chloride) 100 mls @ 200 mls/hr IV Q6H [facility] Last Infusion: 07/15/23 02:32 Dose: Infused Documented By: LAYNE Levofloxacin (Levaquin) 500 mg in 100 mls @ 100 mls/hr IV Q24H [facility] Last Admin: 07/15/23 08:34 Dose: 100 mls/hr Documented By: CHALO Melatonin (Melatonin 3 Mg Tablet) 6 mg PO BEDTIME PRN PRN Reason: Insomnia Mirtazapine (Mirtazapine 15 Mg Tablet) 15 mg PO BEDTIME [facility] Last Admin: 07/14/23 19:42 Dose: 15 mg Documented By: LAYNE Ondansetron HCl (Ondansetron Hcl 4 Mg/2 Ml Vial) 4 mg IVPUSH Q8H PRN PRN Reason: Nausea and Vomiting Polyethylene Glycol (Polyethylene Glycol 3350 17 Gm Powd.Pack) 17 gm PO Q48H [facility] Last Admin: 07/13/23 15:27 Dose: Not Given Documented By: CHALO Non-Admin Reason: Loose stool Sertraline HCl (Sertraline Hcl 25 Mg Tablet) 75 mg PO DAILY [facility] Last Admin: 07/15/23 08:34 Dose: 75 mg Documented By: CHALO Simethicone (Simethicone 80 Mg Tab.Chew) 80 mg PO Q8H PRN PRN Reason: Gas Sodium Chloride (0.9 % Sodium Chloride Flush 3 Ml Syringe) 3 ml IVFLUSH QSHIFT [facility] Last Admin: 07/15/23 08:34 Dose: Not Given Documented By: CHALO Non-Admin Reason: IV Running Vitamin D (Cholecalciferol (Vitamin D3) 25 Mcg Tablet) 25 mcg PO DAILY [facility] Last Admin: 07/15/23 08:34 Dose: 25 mcg Documented By: CHALO Labs 07/15/23 05:50 07/15/23 05:50 Labs: Laboratory Results - last 24 hr 07/14/23 07/14/23 07/14/23 09:45 09:45 09:45 MCV MCH MCHC RDW Plt Count MPV Absolute Nucleated RBC Nucleated RBC % (auto) Anion Gap 13 Estim Creat Clear Calc 75.1 Cancelled Estimated GFR > 60 Cancelled Fasting Glucose 113 H Calcium 8.6 D 07/15/23 05:50 MCV 86.5 MCH 29.2 MCHC 33.8 RDW 13.2 Plt Count 91 L MPV 10.9 Absolute Nucleated RBC 0.000 Nucleated RBC % (auto) 0.0 Anion Gap 13 Estim Creat Clear Calc 77.9 Estimated GFR > 60 Fasting Glucose 109 H Calcium 8.3 L Microbiology Microbiology Results: Microbiology 07/11/23 07:46 Urine Culture - Final Urine Catheterized - Rizzo Catheter Klebsiella pneumoniae Proteus mirabilis 07/11/23 02:33 Blood Culture - Final Blood - Venous Proteus mirabilis Enterococcus faecalis Pseudomonas aeruginosa 07/11/23 02:21 Blood Culture - Final Blood - Venous Proteus mirabilis Enterococcus faecalis Assessment and Plan (1) Dementia: Status: Acute Plan 82M PMH unspecified dementia, mood disorder, hyperlipidemia presented with altered mental status Severe sepsis and acute metabolic encephalopathy due to urinary tract infection due to chronic rizzo complicated by polymicrobial bacteremia (proteus, enterococcus, pseudomonas) ampicillin, levaquin hypernatremia resolved with d5w, monitor off fluids Unspecified dementia At risk for further delirium, monitor closely DVT prophylaxis with Lovenox DNR/DNI Reason for continued hospitalization: monitor off fluids Time Spent With Patient Time: Total time managing care of this patient today ____ minutes. Quality Stroke Does the patient have a stroke diagnosis?: No VTE Prior VTE?: No VTE Risk Level:: Medical - moderate - high VTE Device Contraindication: Treatment Not Indicated VTE Drug Contraindication: N/A - Med Ordered
--- NOTE | 2023-07-15 09:31 | P.CDIM_ITS ---
PROVIDER RESPONSE TEXT: To clarify, the appropriate diagnosis supported by the clinical indicators: Hypokalemia QUERY TEXT: PHYSICIAN'S DOCUMENTATION REQUEST Date of Query: 07/15/2023 09:24 AM EDT Patient Name: Sree Tesfaye Admit Date: 07/11/2023 Dear Toni Hebert, A review of the medical record indicates additional documentation may be needed. Please review below and update the documentation accordingly. Clinical Indicators: LAB FINDINGS: potassium 3.0 L Klor-Con Based on the above, is there a diagnosis that correlates with these lab findings: Hypokalemia Labs indicate a diagnosis of (please specify) Other (explain)Clinically unable to determine (explain)Thank you, Toya Bell, CCS, CDIS Use of terms such as suspected, likely, concern for, or probable (associated with a specific diagnosi s that is being evaluated, monitored, or treated as if it exists) are acceptable and can be coded in the inpatient se tting, when documented at the time of discharge. Please use your independent medical judgment in providing your response. THIS QUERY IS PART OF THE PERMANENT MEDICAL RECORD
--- NOTE | 2023-07-15 11:13 | MHC.CLN ---
F/U DIET=REGULAR, GROUND. TAKES GROUND FOOD AT [facility]. REQUIRES ASSIST WITH MEALS. ENSURE MAX BID TO INCREASE NUTRITIONAL INTAKE. PROVIDES 300 KCALS, 60 G PROTEIN. INTAKE VARIABLE 25-75% WITH AVERAGE X 3 DAYS 50%. AT RISK FOR SKIN BREAKDOWN. FOLLOW FOR INTAKE AND SKIN INTEGRITY.
--- NOTE | 2023-07-15 13:31 | MHC.CM.PN ---
Pt is not ready for DC, he will return to [facility] upon DC, update sent to them today. CM to follow and assist with DC plan.
[2023-07-15 15:30] VITALS: BP 107/62; PULSE 58; RESP 18; TEMP 36.6; O2SAT 96
[2023-07-15] MEDS: 0.9 % Sodium Chloride Flush 3 ML SYRINGE IVFLUSH ×2 (17:23→21:00)
[2023-07-15 19:26] VITALS: BP 132/79; PULSE 64; RESP 18; TEMP 37.4; O2SAT 96
[2023-07-15] MEDS: Mirtazapine 15 MG TABLET PO (20:59)
[2023-07-16 03:08] VITALS: BP 127/56; PULSE 61; RESP 18; TEMP 36.8; O2SAT 96
[2023-07-16] MEDS: Ampicillin Sodium 1 GM in 0.9 % Sodium Chloride 100 ML IV ×2 (04:38→11:37)
[2023-07-16 06:44] LABS: Hematocrit 31.7 % (42.0-52.0); Hemoglobin 10.8 g/dl (14.0-18.0); Mean Corpuscular HGB Conc 34.1 g/dl (31.0-36.0); Mean Corpuscular Hemoglobin 29.5 pg (27.0-33.0); Mean Corpuscular Volume 86.6 fL (80.0-98.0); Mean Platelet Volume 10.6 fL (9.4-12.4); Platelet Count 133 X10*3/uL (160-400); Red Blood Count 3.66 X10*6/uL (4.60-5.80); Red Cell Distribution Width 13.2 % (11.0-16.0); White Blood Count 9.8 X10*3/uL (4.8-10.8)
[2023-07-16 06:57] LABS: Anion Gap 13 (12-20); Blood Urea Nitrogen 19 mg/dL (9-16); Calcium 8.8 mg/dL (8.4-10.2); Carbon Dioxide 20 mmol/L (22-29); Chloride 112 mmol/L (96-108); Estimated Glomerular Filt Rate > 60; Glucose Fasting 101 mg/dL (60-99); Potassium 3.9 mmol/L (3.3-5.1); Sodium 141 mmol/L (135-145)
[2023-07-16 07:33] VITALS: BP 127/60; PULSE 61; RESP 20; TEMP 36.4; O2SAT 96
[2023-07-16] MEDS: levoFLOXacin/D5W 500 MG/100 ML PIGGYBACK 100 MG IV (07:46)
[2023-07-16] MEDS: 0.9 % Sodium Chloride Flush 3 ML SYRINGE IVFLUSH (07:46)
[2023-07-16] MEDS: Cholecalciferol (Vitamin D3) 25 MCG TABLET PO (08:33)
[2023-07-16] MEDS: Sertraline HCL 25 MG TABLET 75 MG PO (08:33)
--- NOTE | 2023-07-16 09:54 | P.DS_ITS ---
DS: Providers Provider Date of Service: 07/16/23 Date of admission: 07/11/23 04:42 Primary care physician: Adrian Minaya MD DS: Diagnosis Discharge Diagnosis (1) Dementia: Status: Acute DS: Summary Hospital Course Hospital Course: from initial hpi: 82-year-old male with pertinent history of unspecified dementia, mood disorder, mixed hyperlipidemia who was sent to the emergency department for evaluation of altered mentation. Patient is a resident of [facility] and he was sent as he is confused. Also has been having multiple episodes of nonbloody emesis. Patient is a poor historian and unable to obtain history from the patient. History obtained from ER provider and chart review. Unable to obtain review of systems. In the emergency department, patient was found to be septic and urine concerning for UTI. hospital course: Patient was admitted for severe sepsis and acute metabolic encephalopathy due to urinary tract infection due to chronic Kuo complicated by polymicrobial bacteremia with Proteus, Enterococcus, Pseudomonas. Also had RICK on admission which resolved with IV hydration. He was treated with ampicillin and Levaquin. Sepsis resolved. He will continue 7 more days of antibiotics. For hypernatremia was initially treated with D5W, the knee was monitor off IV fluids and able to maintain sodium. For unspecified dementia he remained stable. Patient is back to baseline and will be discharged back to long-term care. Time Spent with Patient Time attestation: Total time managing care of this patient today ____ minutes. Discharge coordination time: Greater than 30 minutes Quality: Safe Use of Opioids Does Pt have an Active Cancer Diagnosis on the Problem List?: No Quality: Stroke Does the patient have a stroke diagnosis?: No Physical Exam Vital Signs: Vital Signs: Last Vital Signs Temp 97.5 F 07/16/23 07:33 Pulse 61 07/16/23 07:33 Resp 20 07/16/23 07:33 BP 127/60 07/16/23 07:33 Pulse Ox 96 07/16/23 07:33 O2 Del Method Room Air 07/16/23 07:33 BMI result Body Mass Index 26.6 alert, minimally verbal, frail DS: Data Data Completed and Pending Labs on day of discharge: Laboratory Results - last 24 hr 07/16/23 06:29 WBC 9.8 RBC 3.66 L Hgb 10.8 L Hct 31.7 L MCV 86.6 MCH 29.5 MCHC 34.1 RDW 13.2 Plt Count 133 L D MPV 10.6 Absolute Nucleated RBC 0.000 Nucleated RBC % (auto) 0.0 Sodium 141 Potassium 3.9 D Chloride 112 H Carbon Dioxide 20 L Anion Gap 13 BUN 19 H Creatinine 1.06 Estim Creat Clear Calc 61.0 Estimated GFR > 60 Fasting Glucose 101 H Calcium 8.8 D Discharge Plan Discharge Anticipated Discharge Date/Time: 07/16/23 09:50 Patient Disposition: Xfer SNF Discharge Diagnosis: uti Referrals: [facility] [Outside] - 1 Week Adrian Minaya MD [Primary Care Provider] - 1 Week Discharge Medications: New amoxicillin 500 mg capsule 500 mg PO BID Qty: 14 0RF levofloxacin 500 mg tablet 500 mg PO DAILY Qty: 7 0RF Continued acetaminophen 325 mg Tablet 650 mg PO Q4H PRN (Reason: Fever Or Pain) polyethylene glycol 3350 [Miralax] 17 gram Powder In Packet 17 g PO Q OTHER DAY methenamine hippurate 1 gram Tablet 1 g PO BID mirtazapine [Remeron] 15 mg Tablet 15 mg PO BEDTIME sertraline [Zoloft] 50 mg Tablet 75 mg PO DAILY simethicone 80 mg Tablet,Chewable 80 mg PO Q8H PRN (Reason: Gas ) cholecalciferol (vitamin D3) [Vitamin D3] 25 mcg (1,000 unit) Tablet 25 mcg PO DAILY puzncjnbdctv-vhee-socsu acid 18-400 mg-mcg Tablet 1 tab PO DAILY lidocaine HCl 2 % Gel 1 appl TOPICAL Q8H PRN (Reason: PENILE EROSION) Protocol: Apply to: Apply to: PENILE HEAD Held aspirin 81 mg Tablet,Chewable 81 mg PO DAILY Hold Instructions: Resume on 07/22/23. Discharge Orders: Discharge Order (Routine); Ordered 07/16/23 Ordered By: Toni Hebert Diet: ndd2, thin liquids Activity on Discharge: As tolerated Stand Alone Forms: Patient Portal Discharge page Care Plan Goals: recovery Health Concerns: uti Plan of Treatment: 7 more days amoxil and levaquin Assessment: see above
--- NOTE | 2023-07-16 10:46 | MHC.CM.PN ---
IMM 07/16/23 sent to son, left phone message for him. Pt has been medically cleared for DC, will return to [facility] where he resides for group home care, via ambulance.
--- NOTE | 2023-07-16 13:07 | PC.NURSE ---
Attempted to call [facility] 3 times to give a nursing report prior to pt's return line is busy . report and appropriate paper work sent with pt and ambulance personnel
== END 2023-07-16 13:29 | disposition skilled nursing facility (03) | DRG 698 ==
LOC: HO.ED 04:45 → HO.EDOVER 04:45 → HO.S3 10:39
PROVIDERS: Admitting Provider Student in an Organized Health Care Education/Training Program; Emergency Provider Student in an Organized Health Care Education/Training Program; PCP Internal Medicine; Visit Provider Internal Medicine
DX: T83.511A Infection and inflammatory reaction due to indwelling urethral catheter, initial encounter (principal); A41.9 Sepsis, unspecified organism; G93.41 Metabolic encephalopathy; R65.20 Severe sepsis without septic shock; E87.0 Hyperosmolality and hypernatremia; Z66 Do not resuscitate; F39 Unspecified mood [affective] disorder; N39.0 Urinary tract infection, site not specified; E87.6 Hypokalemia; B95.2 Enterococcus as the cause of diseases classified elsewhere; B96.4 Proteus (mirabilis) (morganii) as the cause of diseases classified elsewhere; B96.5 Pseudomonas (aeruginosa) (mallei) (pseudomallei) as the cause of diseases classified elsewhere; F03.90 Unspecified dementia, unspecified severity, without behavioral disturbance, psychotic disturbance, mood disturbance, and anxiety; E78.2 Mixed hyperlipidemia; Z20.822 Contact with and (suspected) exposure to COVID-19; Z79.82 Long term (current) use of aspirin; Z79.899 Other long term (current) drug therapy
CPT/HCPCS: 36415; 71045; 74018; 80048; 80053; 80202; 81001; 83605; 84484; 85025; 85027; 85730; 87040; 87077; 87086; 87088; 87186; 87205; 87635; 93005; 97161; 99285; C1758; J0290; J0696; J1650; J1956; J2543; J3370; J3371

== ENCOUNTER → 2023-07-11 04:42 | Outpatient (BNV) | payer MEDICARE, SELFPAY | PROVIDERS: Admitting Provider Student in an Organized Health Care Education/Training Program; Emergency Provider Student in an Organized Health Care Education/Training Program; PCP Internal Medicine; Visit Provider Student in an Organized Health Care Education/Training Program | DX: F03.90 Unspecified dementia, unspecified severity, without behavioral disturbance, psychotic disturbance, mood disturbance, and anxiety (principal) | CPT/HCPCS: 99222; 99233; 99239; 99499 ==